=== PATIENT | male | born 1955 | race Hispanic/Latino ===

== ENCOUNTER 2017-05-19 07:11 | Day surgery (SDC) | payer BC ==
[2017-05-19] MEDS ORDERED: Simethicone 40 mg/0.6 ml Liquid (30 ml) ONE (07:35)
[2017-05-19] MEDS ORDERED: Lactated Ringer's 500 ML IV ONE (07:41)
[2017-05-19] MEDS ORDERED: Propofol 10 mg/ml Inj (20 ML) ONE (08:19)
[2017-05-19] MEDS ORDERED: Midazolam 2 MG/2 ML VIAL ONE (08:19)
[2017-05-19 09:09] VITALS: BP 148/82; PULSE 65; RESP 23; TEMP 99.6; O2SAT 100
== END 2017-05-19 09:30 | disposition home or self-care (01) ==
LOC: H.ENDO 07:11
PROVIDERS: ATTEND Internal Medicine Gastroenterology
DX: Z12.11 Encounter for screening for malignant neoplasm of colon (principal); K64.1 Second degree hemorrhoids; Z86.010 Personal history of colon polyps
CPT/HCPCS: 45378; J2001; J2250; J2704; J7120